=== PATIENT | male | born 1995 ===

== ENCOUNTER 2020-08-20 16:03 | Emergency (ER) | payer OTHER ==
[~2020-08-20] VITALS: Ht 177.8 cm; Wt 108.9 kg
== END 2020-08-20 18:46 | disposition left against medical advice (07) ==
LOC: ER 16:03
DX: M54.5 Low back pain (principal); Z53.21 Procedure and treatment not carried out due to patient leaving prior to being seen by health care provider; X50.1XXA Overexertion from prolonged static or awkward postures, initial encounter
CPT/HCPCS: 99281

== ENCOUNTER 2021-02-21 04:59 | Emergency (ER) | payer OTHER ==
[~2021-02-21] VITALS: Ht 177.8 cm; Wt 111.1 kg
[2021-02-21 06:09] LABS: BASOPHILS ABSOLUTE AUTO 0.01 K/mm3 (0.00-0.23); BASOPHILS PERCENT AUTO 0 % (0-2); EOSINOPHILS ABSOLUTE AUTO 0.09 K/mm3 (0.00-0.68); EOSINOPHILS PERCENT AUTO 1 % (0-6); Hemoglobin 16.1 g/dL (13.5-17.5); IMMATURE GRAN ABSOLUTE AUTO 0.03 K/mm3 (0.00-0.10); IMMATURE GRAN PERCENT AUTO 0 % (0-1); LYMPHOCYTES ABSOLUTE AUTO 2.04 K/mm3 (0.84-5.20); LYMPHOCYTES PERCENT AUTO 28 % (21-46); MONOCYTES ABSOLUTE AUTO 0.48 K/mm3 (0.16-1.47); MONOCYTES PERCENT AUTO 7 % (4-13); Mean Corpuscular HGB 28.9 pg (26.0-34.0); Mean Corpuscular Volume 82 fL (80-100); Mean Platelet Volume 9.7 fL (9.1-12.4); NEUTROPHILS ABSOLUTE AUTO 4.54 K/mm3 (1.96-9.15); NEUTROPHILS PERCENT AUTO 63 % (41-73); Platelet Count 348 K/mm3 (150-400); RDW Standard Deviation 38.8 fL (35.1-46.3); Red Blood Cell Count 5.58 M/mm3 (4.30-5.90); White Blood Cell Count 7.19 K/mm3 (4.00-11.30)
[2021-02-21 06:36] LABS: Alanine Aminotransfer (ALT/SGP 76 U/L (12-78); Albumin/Globulin Ratio 0.9 (0.8-1.8); Alk Phos 74 U/L (50-136); Anion Gap 8 mmol/L (6-16); Aspartate Aminotrans (AST/SGOT 28 U/L (12-37); Bilirubin, Total 0.4 mg/dL (0.1-1.0); Blood Urea Nitrogen 16 mg/dL (8-24); Bun/Creatinine Ratio 16.6 (12.0-20.0); CO2, Blood 25 mmol/L (21-32); Calcium, Blood 8.9 mg/dL (8.5-10.1); Chloride, Blood 107 mmol/L (98-108); Creatinine, Blood 0.97 mg/dL (0.60-1.20); Globulin, Blood 4.3 g/dL (2.2-4.0); Glomerular Filtration Rate >60 (60-); Glucose, Blood 105 mg/dL (70-99); Potassium, Blood 3.7 mmol/L (3.5-5.5); Sodium, Blood 140 mmol/L (136-145); Total Protein, Blood 8.3 g/dL (6.4-8.2)
[2021-02-21] MEDS ORDERED: PRED20 PO (06:59)
[2021-02-21] MEDS ORDERED: FAMO20 PO (06:59)
[2021-02-21] MEDS ORDERED: EPIPEN 2-P0.3 MG/0.1 IM (06:59)
== END 2021-02-21 08:14 | disposition home or self-care (01) ==
LOC: ER 04:59
PROVIDERS: Emergency Medicine
DX: T78.2XXA Anaphylactic shock, unspecified, initial encounter (principal); R20.0 Anesthesia of skin; R22.1 Localized swelling, mass and lump, neck
CPT/HCPCS: 80053; 85025; 96372-59; 96374; 96375; 99284-25; J0171; J1200; J2930

== ENCOUNTER 2021-03-21 22:39 | Emergency (ER) | payer OTHER ==
[~2021-03-21] VITALS: Ht 177.8 cm; Wt 108.9 kg
[~2021-03-21 22:39] MED LIST: EPIPEN 2-P0.3 MG/0.1 IM; FAMO20 PO; PRED20 PO
[2021-03-21] MEDS ORDERED: Prednisone20 MG PO (23:33)
[2021-03-21] MEDS ORDERED: EPIPEN0.3 MG/0.3 IM (23:33)
== END 2021-03-22 00:16 | disposition home or self-care (01) ==
LOC: ER 22:39
DX: T78.40XA Allergy, unspecified, initial encounter (principal); Z88.6 Allergy status to analgesic agent; Z79.52 Long term (current) use of systemic steroids; Z79.899 Other long term (current) drug therapy
CPT/HCPCS: 96372-59; 96374; 96375; 99283-25; J0171; J1200; J2930